=== PATIENT | female | born 1950 | race Caucasian/White ===

== ENCOUNTER 2016-08-10 07:05 | Day surgery (SDC) | payer BC ==
--- NOTE | ~2016-08-10 | EGD ---
EGD REPORT [facility] [address] [address] NAME: ZAHRAA TOMAS : 52 STATUS : REG [facility]#: [id number] AGE: 66 ADM/REG DATE : 08/10/16 MR#: [id number] REPORT SERV DATE: 08/10/16 DICTATED BY: DATE: REPORT STATUS : Draft TRANSCRIBED BY: [employer] DATE: 08/10/16 [facility] Patient Name: Zahraa Tomas Date of : 1950 Attending MD: CHRISTOPHER TALBOT MD Procedure Date No Time: 08/10/2016 Procedure: Colonoscopy Indications: Screening for colorectal malignant neoplasm Referring MD: Juan Garza Medicines: Monitored Anesthesia Care Complications: No immediate complications. Procedure: Pre-Anesthesia Assessment: - ASA Grade Assessment: I - A normal, healthy patient. After I obtained informed consent, the scope was passed under direct vision. Throughout the procedure, the patient's blood pressure, pulse, and oxygen saturations were monitored continuously. The PCF [id number] was introduced through the anus and advanced to the cecum, identified by appendiceal orifice and ileocecal valve. The colonoscopy was performed without difficulty. The patient tolerated the procedure well. The quality of the bowel preparation was excellent. Findings: The perianal and digital rectal examinations were normal. Multiple small-mouthed diverticula were found in the sigmoid colon, at the hepatic flexure and in the ascending colon. A flat polyp was found in the transverse colon. The polyp was 8 mm in size. The polyp was removed with a cold snare. Resection and retrieval were complete. No other significant abnormalities were identified in a careful examination of the remainder of the colon. There is no endoscopic evidence of inflammation, mass, ulcerations or angioectasia in the entire colon. No additional abnormalities were found on retroflexion. Impression: - Diverticulosis in the sigmoid colon, at the hepatic flexure and in the ascending colon. - One 8 mm polyp in the transverse colon. Resected and retrieved. Recommendation: - Patient has a contact number available for emergencies. The signs and symptoms of potential delayed complications were discussed with the patient. Return to normal activities tomorrow. Written discharge EGD REPORT [address] [place]. [address] NAME: ZAHRAA TOMAS : [birth year] STATUS : REG [facility]#: [id number] AGE: 66 ADM/REG DATE : 08/10/16 MR#: [id number] REPORT SERV DATE: 08/10/16 DICTATED BY: DATE: REPORT STATUS : Draft TRANSCRIBED BY: [employer] DATE: 08/10/16 instructions were provided to the patient. - High fiber diet. - Discharge patient to home. - Continue present medications. - Await pathology results. - Repeat colonoscopy in 5 years for surveillance. Procedure Code(s): --- Professional --- 83945, Colonoscopy, flexible, proximal to splenic flexure; with removal of tumor(s), polyp(s), or other lesion(s) by snare technique Diagnosis Code(s): --- Professional --- K57.30, Diverticulosis of large intestine without perforation or abscess without bleeding D12.3, Benign neoplasm of transverse colon Z12.11, Encounter for screening for malignant neoplasm of colon CPT copyright 2013 [employer]. All rights reserved. The codes documented in this report are preliminary and upon bean sorter review may be revised to meet current compliance requirements. CHRISTOPHER TALBOT MD 08/10/2016 8:39 AM This report has been signed electronically. Number of Addenda: 0 Note Initiated On: 08/10/2016 8:10 AM Scope Withdrawal Time 0 hours 10 minutes 46 seconds [address] [place] [id number]
[~2016-08-10 07:05] MED LIST: ASAB PO
== END 2016-08-10 23:59 | disposition home or self-care (01) ==
LOC: DMU 07:05
PROVIDERS: Internal Medicine Gastroenterology
PROC: 0DBL8ZX Excision of Transverse Colon, Via Natural or Artificial Opening Endoscopic, Diagnostic (ICD-10-PCS; principal; 2016-08-10 08:30)
DX: Z12.11 Encounter for screening for malignant neoplasm of colon (principal); D12.3 Benign neoplasm of transverse colon; K57.30 Diverticulosis of large intestine without perforation or abscess without bleeding; K21.9 Gastro-esophageal reflux disease without esophagitis; Z88.0 Allergy status to penicillin; Z90.710 Acquired absence of both cervix and uterus; Z98.890 Other specified postprocedural states
CPT/HCPCS: 88305